=== PATIENT | female | born 1970 | race Two or more races ===

== ENCOUNTER 2023-03-03 11:30 | Emergency (ER) | payer OTHER ==
[~2023-03-03] VITALS: Ht 162.6 cm; Wt 68.0 kg
[2023-03-03] MEDS ORDERED: LOSARTAN POTASS25 MG PO (12:27)
== END 2023-03-03 15:56 | disposition home or self-care (01) ==
LOC: ER 11:31
DX: M54.2 Cervicalgia (principal); M62.838 Other muscle spasm; I10 Essential (primary) hypertension; Z88.0 Allergy status to penicillin; Z88.8 Allergy status to other drugs, medicaments and biological substances

== ENCOUNTER 2024-02-10 23:46 | Emergency (ER) | payer OTHER ==
[~2024-02-10] VITALS: Ht 165.1 cm; Wt 68.0 kg
[~2024-02-10 23:46] MED LIST: LOSARTAN POTASS25 MG PO
[2024-02-11] MEDS ORDERED: DIPHENHYDRAMINE HCL 50 MG/ML VIAL 1ML ONE (05:55)
[2024-02-11 06:53] LABS: HEMOGLOBIN 10.4 g/dL (12.0-15.00); MEAN CELL VOLUME 85.8 fL (80.00-100.00); MEAN CORPUSCULAR HEMOGLOBIN 27.8 pg (27.00-32.0); MEAN CORPUSCULAR HGB CONC 32.4 g/dl (32.0-36.0); PLATELET COUNT 320 K/uL (150-450); RED BLOOD COUNT 3.73 M/uL (4.00-6.00); RED CELL DISTRIBUTION WIDTH 14.8 % (11.5-14.5)
[2024-02-11 07:24] LABS: ALBUMIN 3.3 gm/dL (3.4-5.0); BILIRUBIN TOTAL 0.23 mg/dL (0.3-1.2); CALCIUM 9.6 mg/dL (8.5-10.1); CREATININE SERUM 0.97 mg/dL (0.55-1.02); GFR 60.3; GLOBULINA 6.2 G/DL (2.4-3.5); POTASSIUM 3.96 mEq/L (3.5-5.1); TOTAL PROTEIN 9.5 gm/dL (6.4-8.2)
== END 2024-02-11 11:06 | disposition home or self-care (01) ==
LOC: ER 23:46
PROVIDERS: General Practice
DX: R21 Rash and other nonspecific skin eruption (principal); Z20.822 Contact with and (suspected) exposure to COVID-19; I10 Essential (primary) hypertension; M79.7 Fibromyalgia; Z88.0 Allergy status to penicillin; Z88.8 Allergy status to other drugs, medicaments and biological substances

== ENCOUNTER 2024-09-18 16:54 | Emergency (ER) | payer OTHER ==
[~2024-09-18] VITALS: Ht 162.6 cm; Wt 70.3 kg
[2024-09-18 19:20] LABS: BASO % 0.3 % (0.1-1.2); EOS # 0.10 (0.04-0.54); EOS % 1.6 % (0.7-7.0); LYMPH # 2.04 (1.18-3.74); LYMPH % 32.7 % (19.3-53.1); MEAN PLATELET VOLUME 10.70 fl (9.4-12.4); MONO # 0.39 (0.24-0.82); MONO % 6.3 % (4.7-12.5); NEUT # 3.68 (1.56-6.13); NEUT % 58.9 % (34.0-71.1); RED CELL DISTRIBUTION WIDTH 13.5 % (11.6-14.4)
[2024-09-18 19:27] LABS: ERYTHROCYTE SEDIMENTATION RATE > 130 mm/hr (0-30)
[2024-09-18 19:49] LABS: ALT/SGPT 20.0 U/L (12-78); AST/SGOT 21.0 U/L (15-37); BILIRUBIN TOTAL 0.37 mg/dL (0.3-1.2); BUN CREA RATIO 18.0 (7.0-25.0); CREATININE SERUM 1.05 mg/dL (0.55-1.02); GFR 55.03; GLOBULINA 4.3 G/DL (2.4-3.5); GLUCOSE FASTING 94.0 mg/dL (65-100); OSMOLALITY SERUM 287.0 MOSM/KG (275-295)
[2024-09-18 19:54] LABS: URINE APPEARANCE Clear; URINE BILIRRUBIN Negative (NEGATIVE); URINE BLOOD Negative; URINE COLOR Yellow; URINE GLUCOSE Negative (NEGATIVE); URINE KETONE Negative (NEGATIVE); URINE LEUKOCYTE Trace; URINE NITRATE Negative; URINE PROTEIN Negative (NEGATIVE); URINE UROBILINOGEN 0.2 E.U./dl
[2024-09-18 19:57] LABS: URINE BACTERIA 19.1 uL (0.0-1933); URINE EPITHELIAL CELLS 1.8 uL (0.0-38.8); URINE RBC 2.0 uL (0.0-20.8); URINE WBC 9.8 uL (0.0-23.2)
[2024-09-18 20:05] LABS: URINE CAST 0.00 uL (0.0-1.40)
[2024-09-18 20:10] LABS: EOSINOPHIL MAN 2.0 %; LYMPHOCYTE MAN 36.0 %; MONOCYTE MAN 6.0 %; NEUTROPHILS MAN 56.0 %
== END 2024-09-18 22:43 | disposition home or self-care (01) ==
LOC: ER 16:57
PROVIDERS: Emergency Medicine
DX: N30.90 Cystitis, unspecified without hematuria (principal); R30.0 Dysuria; I10 Essential (primary) hypertension; Z88.0 Allergy status to penicillin; Z88.5 Allergy status to narcotic agent